=== PATIENT | male | born 1990 | race Caucasian/White ===

== ENCOUNTER 2019-11-25 20:54 | Emergency (ER) | payer MEDICAID ==
[~2019-11-25] VITALS: Ht 177.8 cm; Wt 81.6 kg
[2019-11-25 20:58] VITALS: BP_SYST 132
--- NOTE | 2019-11-25 21:07 | NUR ---
Patient to [facility] for evaluation. Side rails up. Report given to SIMONA Miller
--- NOTE | 2019-11-25 21:15 | NUR ---
Pt MADINA BarnesLpn Or Medical Assistant to ED seeking medical clearance and eval for R cheek, L hand and L Leg swelling and mild pain. No other complaints and or injuries noted VSS no s/s of acute distress Resting on gurney rails up
--- NOTE | 2019-11-25 21:26 | NUR ---
ER Dr. Manley at bedside examining patient.
[2019-11-25 21:34] VITALS: BP_SYST 132
--- NOTE | 2019-11-25 21:34 | NUR ---
Patient does not wish to proceed with medical care recommended by . Patient given information related to possible complications, up to and including , which could occur as a result of leaving hospital at this time. Patient verbalizes understanding of risks involved leaving against medical advice. Patient has signed AMA form.
== END 2019-11-25 21:34 | disposition left against medical advice (07) ==
LOC: SED 20:54
DX: R60.0 Localized edema (principal); L98.8 Other specified disorders of the skin and subcutaneous tissue; F19.10 Other psychoactive substance abuse, uncomplicated
CPT/HCPCS: 99283

== ENCOUNTER 2020-01-23 06:49 | Emergency (ER) | payer MEDICAID ==
[~2020-01-23] VITALS: Ht 177.8 cm; Wt 88.5 kg
[2020-01-23 07:25] VITALS: BP_SYST 117
--- NOTE | 2020-01-23 07:31 | NUR ---
Patient to ER bed 3 to gown for evaluation. Side rails up. Report given to SIMONA Wise.
--- NOTE | 2020-01-23 07:40 | NUR ---
ER Dr. Soriano at bedside examining patient.
[2020-01-23 08:20] LABS: BASOPHILS # (AUTO) 0.1 K/uL (0.0-0.2); BASOPHILS % (AUTO) 0.9 % (0.0-2.0); EOSINOPHILS # (AUTO) 0.3 K/uL (0.0-0.4); EOSINOPHILS % (AUTO) 4.1 % (0.0-4.0); HEMATOCRIT 35.5 % (36-54); HEMOGLOBIN 11.6 g/dL (14.0-18.0); LYMPHOCYTES % (AUTO) 40.4 % (20.5-51.5); MEAN CORPUSCULAR HEMOGLOBIN 27 pg (27-31); MEAN CORPUSCULAR HGB CONC 33 % (32-36); MEAN CORPUSCULAR VOLUME 82 fL (79.0-98.0); MONOCYTES # (AUTO) 0.5 K/uL (0.0-1.0); MONOCYTES % (AUTO) 6.7 % (1.7-9.3); NEUTROPHILS # (AUTO) 3.6 K/uL (1.8-7.7); NEUTROPHILS % (AUTO) 47.9 % (40.0-70.0); PLATELET COUNT (AUTO) 247 K/uL (130-430); RED BLOOD CELL COUNT(AUTO) 4.32 MIL/uL (4.2-6.2); RED CELL DISTRIBUTION WIDTH 14.1 % (9.0-15.0); WHITE BLOOD COUNT (AUTO) 7.5 K/uL (4.8-10.8)
--- NOTE | 2020-01-23 08:25 | NUR ---
Patient moved to [facility].
--- NOTE | 2020-01-23 08:26 | NUR ---
Patient came in for evaluation of bump to lower left leg with clear discharge, he noticed it yesterday. No other complaints at this time.
[2020-01-23 08:33] LABS: CALCIUM 9.1 mg/dL (8.4-11.0); CREATININE 0.86 mg/dL (0.55-1.30); POTASSIUM 3.3 mmol/L (3.5-5.1)
[2020-01-23 08:37] LABS: ALBUMIN 3.8 g/dL (3.4-4.8); C-REACTIVE PROTEIN QUANT 1.1 mg/dL (0-0.5); TOTAL BILIRUBIN 0.2 mg/dL (0.0-1.0)
[2020-01-23 09:30] VITALS: BP_SYST 117
--- NOTE | 2020-01-23 09:30 | NUR ---
Patient given written and verbal discharge instructions and verbalizes understanding. ER MD discussed with patient the results and treatment provided. Patient in stable condition. ID arm band removed. Rx of clindamycin given. Patient educated on pain management and to follow up with PMD. Pain Scale 0/10. Opportunity for questions provided and answered. Medication side effect fact sheet provided.
== END 2020-01-23 09:30 | disposition home or self-care (01) ==
LOC: SED 06:49
DX: L03.116 Cellulitis of left lower limb (principal)
CPT/HCPCS: 36415; 80053; 83605; 85025; 85610-TC; 85730-TC; 86140; 99283